=== PATIENT | female | born 1945 | race Caucasian/White ===

== ENCOUNTER 2016-04-20 14:06 | Observation (INO) | payer MEDICARE ==
--- NOTE | ~2016-04-20 | HP ---
History And Physical [address] [place]. [address] NAME: HARRIET STRONG : 43 STATUS : ADM Yajaira PAT#: [id number] AGE: 70 ADM/REG DATE : 04/20/16 MR#: [id number] REPORT SERV DATE: 04/21/16 DICTATED BY: JORGE HERRON JR DATE: 04/20/16 REPORT STATUS : Draft TRANSCRIBED BY: MODSanjay DATE: 04/20/16 DATE OF ADMISSION: 04/20/2016 CHIEF COMPLAINT: Chest wall pain with cough and dialysis nonadherence. HISTORY: A 70-year-old female started on dialysis for acute on chronic failure leading to ESRD, 01/2016. This was after emergent endovascular repair and reconstruction of the right renal artery. Left hospital dialysis dependent, has been dialyzing at [facility] location. She has had some degree of nonadherence to dialysis treatments. Her last treatment was on Saturday of this week. Tonight, she presents to the emergency room complaining of chest wall pain associated with cough. Cough has been ongoing for four to five days. She reports subjective fever, but no real sputum production. There has been no chills or diaphoresis. Her chest x-ray is essentially clear to my eye, and she has no leukocytosis. She does not have gross volume overload. Dialysis Services are not available on the outpatient setting to her again until Saturday, so she is admitted for dialytic care, and expectant observation for any febrile illness that could be associated with her cough. PAST MEDICAL HISTORY: 1. Acute on chronic kidney disease leading to ESRD. 2. Recent AAA repair endovascularly. 3. Recent right renal artery revascularization. 4. History of hypertension. 5. Anemia of chronic kidney disease. 6. Recent urinary tract infection. 7. 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 8. History of tobacco habituation. 9. Remote cholecystectomy, remote oophorectomy, and history of colonoscopy with polypectomy, remote left knee surgery, appendectomy, ectopy . SOCIAL HISTORY: Not . Smoking for multiple years. FAMILY HISTORY: Diabetes and leukemia. REVIEW OF SYSTEMS: Chest wall pain, but otherwise no current head, neck, other pulmonary, other cardiac, other GI, , musculoskeletal, or neurological complaints. She does have chronic constipation. PHYSICAL EXAMINATION: VITAL SIGNS: Blood pressure 160/90, temperature 99.4, respirations 20, O2 saturation 96%, heart rate recorded at 100. GENERAL: This is a chronically ill, thin white female, who is awake, alert, oriented, answers questions appropriately, sitting up in a bedside chair in the emergency room suite. HEENT: Cranium is normocephalic. Pupils are equal. No scleral icterus. No nasal discharge. Facial symmetry is present. NECK: No neck vein distention. No carotid bruits. No adenopathy is felt. Trachea is History And Physical [address] [place]. [address] NAME: HARRIET STRONG : 44 STATUS : ADM Yajaira PAT#: [id number] AGE: 70 ADM/REG DATE : 04/20/16 MR#: [id number] REPORT SERV DATE: 04/21/16 DICTATED BY: JORGE HERRON JR. DATE: 04/20/16 REPORT STATUS : Draft TRANSCRIBED BY: MARIFER DATE: 04/20/16 midline. Good range of motion. LUNGS: Clear to auscultation without adventitious sounds, no increased work of breathing. HEART: Tones are regular without rub, murmur, or gallop appreciated. ABDOMEN: Soft, nontender. Liver edge is not distended. GENITALIA: Not examined. CVA nontender. EXTREMITIES: With no edema. Poor musculature. Symmetrical in appearance. Distal pulses are symmetrically diminished. Cyanosis is not observed. NEUROLOGIC: Cognition, speech, and emotional status are normal. Moves all extremities. Strength appears symmetrical. Gait is not currently tested. IMAGING: Chest x-ray has been reported. LABORATORY DATA: The sodium 133, potassium 4.6, chloride 97, CO2 of 25, BUN 28, creatinine 3.37, and calcium is 9.9, total protein 7.9, albumin 3.0, liver function tests are satisfactory. Troponin is not elevated. BNP was about 500. Flu screen is negative. White count 4900, hemoglobin 11.3, platelets 3.94. ASSESSMENT: 1. Dialysis nonadherence. 2. Chest wall pain. 3. Acute on chronic leading to end-stage renal disease. 4. Recent vascular anomalies repaired. PLAN: Hemodialysis tomorrow since her dialysis centers will not be available for service again until Saturday. Observe for pyrexia, but defer antibiotics for now. Defer lisinopril. Since it is being considered whether there might have been renal functional recovery, administer hydralazine as an alternative agent. [facility] to assume her care in the morning. DF/MODL Jorge Herron Jr, M.D. / [id number] CC: Jorge Herron Jr, M.D.
[~2016-04-20 14:06] MED LIST: ASA5GR PO; ASAB PO; KAPIDEX60 MG PO; PLAVIX PO; XODOL 10-300 T1 EACH PO; [UNRECOGNIZED DRUG - REMARK]
[2016-04-20 15:31] LABS: BASOPHILS ABSOLUTE 0.05 10/3/uL (0.0-0.16); EOSINOPHILS 3.9 %; EOSINOPHILS ABSOLUTE 0.19 10/3/uL (0.0-0.53); HEMATOCRIT 35.8 % (36.0-48.0); HEMOGLOBIN 11.3 g/dL (12.0-16.0); IMMATURE GRANULOCYTES 0.4 %; IMMATURE GRANULOCYTES ABSOLUTE 0.02 10/3/uL (0.0-0.11); LYMPHOCYTES 40.8 %; LYMPHOCYTES ABSOLUTE 1.99 10/3/uL (0.67-4.30); MEAN CORPUS HGB CONC 31.6 g/dL (32.0-36.0); MEAN CORPUSCULAR HEMOGLOB 29.7 pg (26.0-34.0); MEAN PLATELET VOLUME 9.7 fL (9.2-13.0); MONOCYTES 8.6 %; MONOCYTES ABSOLUTE 0.42 10/3/uL (0.21-1.20); NEUTROPHILS 45.3 %; NEUTROPHILS ABSOLUTE 2.21 10/3/uL (2.02-8.40); PLATELET COUNT 394 10/3/uL (150-400); RBC DISTRIBUTION WIDTH 15.1 % (12.0-16.0); RED CELL COUNT 3.81 10/6/uL (4.0-5.6)
[2016-04-20 15:34] LABS: ER CBC TAT 0 Hrs 15 Mins; MANUAL DIFF NO %; PROTIME (NOT ORD) 12.7 SEC (12.0-14.5); WHITE BLOOD CELLS 4.9 10/3/uL (4.5-10.5)
[2016-04-20 15:35] LABS: PARTIAL THROMBO TIME 39.9 SEC (22.5-37.2)
[2016-04-20 15:45] LABS: CALCIUM, SERUM 9.9 MG/DL (8.5-10.4); CHLORIDE, SERUM 97 MMOL/L (96-112); CO2 (CARBON DIOXIDE) 25 MMOL/L (24-34); CREATININE 3.37 MG/DL (0.55-1.02); GFR AFRICAN AMERICAN 15 ML/MIN (>=60); GFR NON AFRICAN AMERICAN 13 ML/MIN (>=60); POTASSIUM, SERUM 4.6 MMOL/L (3.5-5.3); SGPT(ALT) 10 U/L (5-65); SODIUM, SERUM 133 MMOL/L (135-148); TOTAL BILIRUBIN 0.7 MG/DL (0-1.2); TOTAL PROTEIN 7.9 G/DL (6.0-8.5); TROPONIN I <0.02 NG/ML (<0.05)
[2016-04-20 15:46] LABS: A/G RATIO 0.6 (0.7-1.9); ALKALINE PHOSPHATASE 100 U/L (45-117); BUN (BLOOD UREA NITROGEN) 28 MG/DL (6-23); GLOBULIN 4.9 G/DL (2.5-4.1); GLUCOSE, SERUM 81 MG/DL (60-99); SGOT(AST) 19 U/L (5-40)
[2016-04-20 18:30] LABS: INFLUENZA A SCREEN NEGATIVE (NEGATIVE); INFLUENZA B SCREEN NEGATIVE (NEGATIVE)
[2016-04-20] MEDS ORDERED: NORCO1 TAB PO (18:49)
[2016-04-20] MEDS ORDERED: WELLSR100 PO (18:50)
[2016-04-20] MEDS ORDERED: PR25 PO (18:50)
[2016-04-20] MEDS ORDERED: EX-LAX PO (18:51)
[2016-04-20] MEDS ORDERED: OCEAN NAS (18:51)
[2016-04-20] MEDS ORDERED: LINZESS 145 M145 MCG PO (18:51)
[2016-04-20] MEDS ORDERED: TUMSROLL PO (18:51)
[2016-04-20] MEDS ORDERED: CEFT2 PO (18:55)
[2016-04-21 04:46] LABS: ALBUMIN 2.4 G/DL (3.5-5.0); CHLORIDE, SERUM 102 MMOL/L (96-112); CO2 (CARBON DIOXIDE) 24 MMOL/L (24-34); CREATININE 3.38 MG/DL (0.55-1.02); GFR AFRICAN AMERICAN 15 ML/MIN (>=60); GFR NON AFRICAN AMERICAN 13 ML/MIN (>=60); GLUCOSE, SERUM 83 MG/DL (60-99); POTASSIUM, SERUM 4.6 MMOL/L (3.5-5.3); SODIUM, SERUM 138 MMOL/L (135-148)
[2016-04-21 04:50] LABS: BUN (BLOOD UREA NITROGEN) 34 MG/DL (6-23); CALCIUM, SERUM 8.8 MG/DL (8.5-10.4); PHOSPHORUS, SERUM 3.6 MG/DL (2.5-4.5)
[2016-04-21 08:55] LABS: BASOPHILS 0.9 %; BASOPHILS ABSOLUTE 0.05 10/3/uL (0.0-0.16); EOSINOPHILS 8.3 %; EOSINOPHILS ABSOLUTE 0.45 10/3/uL (0.0-0.53); HEMATOCRIT 33.3 % (36.0-48.0); HEMOGLOBIN 10.8 g/dL (12.0-16.0); IMMATURE GRANULOCYTES 0.2 %; IMMATURE GRANULOCYTES ABSOLUTE 0.01 10/3/uL (0.0-0.11); LYMPHOCYTES 47.1 %; LYMPHOCYTES ABSOLUTE 2.56 10/3/uL (0.67-4.30); MEAN CORPUS HGB CONC 32.4 g/dL (32.0-36.0); MEAN CORPUSCULAR HEMOGLOB 30.9 pg (26.0-34.0); MEAN CORPUSCULAR VOLUME 95.1 fL (80-100); MEAN PLATELET VOLUME 9.3 fL (9.2-13.0); MONOCYTES 5.1 %; MONOCYTES ABSOLUTE 0.28 10/3/uL (0.21-1.20); NEUTROPHILS 38.4 %; NEUTROPHILS ABSOLUTE 2.09 10/3/uL (2.02-8.40); PLATELET COUNT 314 10/3/uL (150-400); RBC DISTRIBUTION WIDTH 15.1 % (12.0-16.0); WHITE BLOOD CELLS 5.4 10/3/uL (4.5-10.5)
[2016-04-21 08:56] LABS: MANUAL DIFF NO %
[2016-04-21 13:20] LABS: PROCALCITONIN 0.12 ng/mL (<0.5)
[2016-04-22 03:51] LABS: BASOPHILS 0.5 %; BASOPHILS ABSOLUTE 0.04 10/3/uL (0.0-0.16); EOSINOPHILS 4.4 %; EOSINOPHILS ABSOLUTE 0.32 10/3/uL (0.0-0.53); HEMATOCRIT 35.6 % (36.0-48.0); HEMOGLOBIN 11.2 g/dL (12.0-16.0); IMMATURE GRANULOCYTES 0.3 %; IMMATURE GRANULOCYTES ABSOLUTE 0.02 10/3/uL (0.0-0.11); LYMPHOCYTES 44.7 %; LYMPHOCYTES ABSOLUTE 3.26 10/3/uL (0.67-4.30); MEAN CORPUS HGB CONC 31.5 g/dL (32.0-36.0); MEAN CORPUSCULAR HEMOGLOB 30.6 pg (26.0-34.0); MEAN CORPUSCULAR VOLUME 97.3 fL (80-100); MEAN PLATELET VOLUME 9.1 fL (9.2-13.0); MONOCYTES 7.4 %; MONOCYTES ABSOLUTE 0.54 10/3/uL (0.21-1.20); NEUTROPHILS 42.7 %; NEUTROPHILS ABSOLUTE 3.12 10/3/uL (2.02-8.40); PLATELET COUNT 375 10/3/uL (150-400); RBC DISTRIBUTION WIDTH 15.2 % (12.0-16.0); RED CELL COUNT 3.66 10/6/uL (4.0-5.6); WHITE BLOOD CELLS 7.3 10/3/uL (4.5-10.5)
[2016-04-22 03:52] LABS: MANUAL DIFF NO %
[2016-04-22 04:09] LABS: ALBUMIN 2.6 G/DL (3.5-5.0); CALCIUM, SERUM 9.1 MG/DL (8.5-10.4); CHLORIDE, SERUM 103 MMOL/L (96-112); CO2 (CARBON DIOXIDE) 25 MMOL/L (24-34); CREATININE 2.98 MG/DL (0.55-1.02); GFR AFRICAN AMERICAN 18 ML/MIN (>=60); GFR NON AFRICAN AMERICAN 15 ML/MIN (>=60); GLUCOSE, SERUM 94 MG/DL (60-99); POTASSIUM, SERUM 4.5 MMOL/L (3.5-5.3); SODIUM, SERUM 140 MMOL/L (135-148)
[2016-04-22 04:10] LABS: BUN (BLOOD UREA NITROGEN) 19 MG/DL (6-23); PHOSPHORUS, SERUM 2.5 MG/DL (2.5-4.5)
[2016-04-22 13:40] LABS: CREAT SERUM (NOT ORDER) 2.98 MG/DL (0.53-1.43)
[2016-04-22 13:41] LABS: # HR UR COLLECT (NOT ORD) 12; CREAT CLEAR (NOT ORDER) 20.1 ML/MIN (75-115); URINE CREAT 0.43 G/T VOL (0.6-2.8); URINE TOTAL VOL (NOT ORD) 400 ML
[2016-04-22] MEDS ORDERED: APRES25 PO (14:53)
[2016-04-27] MEDS ORDERED: APRES25 PO (16:14)
[2016-04-27] MEDS ORDERED: CULTURELLE PROBIOTIC PO (16:15)
[2016-04-27] MEDS ORDERED: PRIN10 PO (16:19)
[2016-04-27] MEDS ORDERED: PROVHFA INH (16:28)
[2016-04-27] MEDS ORDERED: SILVADENE1 % TOP (16:31)
[2016-05-04] MEDS ORDERED: MEGACEUDL PO (12:19)
[2016-05-04] MEDS ORDERED: FLORASTOR250 MG PO (12:21)
[2016-05-09] MEDS ORDERED: PROVHFA INH (21:47)
[2016-05-09] MEDS ORDERED: TUMSROLL PO (21:48)
[2016-05-09] MEDS ORDERED: ASABAYER PO (21:48)
[2016-05-09] MEDS ORDERED: KAPIDEX60 MG PO (21:49)
[2016-05-09] MEDS ORDERED: APRES25 PO (21:49)
[2016-05-09] MEDS ORDERED: NORCO1 TAB PO (21:52)
[2016-05-09] MEDS ORDERED: LINZESS 145 M145 MCG PO (21:52)
[2016-05-09] MEDS ORDERED: MEGACEUDL PO (21:53)
[2016-05-09] MEDS ORDERED: PRIN10 PO (21:53)
[2016-05-09] MEDS ORDERED: PR25 PO (21:53)
[2016-05-09] MEDS ORDERED: OCEAN NAS (21:54)
[2016-05-09] MEDS ORDERED: CULTURELLE PROBIOTIC PO (21:54)
[2016-05-09] MEDS ORDERED: WELLSR100 PO (21:55)
[2016-05-12] MEDS ORDERED: FLORASTOR250 MG PO (11:56)
[2016-05-12] MEDS ORDERED: COREG6 PO (12:03)
[2016-05-12] MEDS ORDERED: NORV5 PO (12:03)
[2016-05-12] MEDS ORDERED: VANCOMYCIN (12:03)
[2016-09-26] MEDS ORDERED: TUMS E-X750 M2 PO (13:39)
[2016-09-26] MEDS ORDERED: ROLAIDS PO (14:09)
[2016-12-04] MEDS ORDERED: AUG500 PO (09:00)
== END 2016-04-22 16:10 | disposition home or self-care (01) ==
LOC: ER 14:06 → CDU1 19:06
PROVIDERS: Emergency Medicine; Internal Medicine Nephrology; Obstetrics & Gynecology
DX: I12.0 Hypertensive chronic kidney disease with stage 5 chronic kidney disease or end stage renal disease (principal); N18.6 End stage renal disease; D63.1 Anemia in chronic kidney disease; N39.0 Urinary tract infection, site not specified; F17.210 Nicotine dependence, cigarettes, uncomplicated; H91.90 Unspecified hearing loss, unspecified ear; I73.9 Peripheral vascular disease, unspecified; Z87.440 Personal history of urinary (tract) infections; Z90.49 Acquired absence of other specified parts of digestive tract; Z98.890 Other specified postprocedural states; Z99.2 Dependence on renal dialysis; Z79.891 Long term (current) use of opiate analgesic; Z79.899 Other long term (current) drug therapy; Z79.82 Long term (current) use of aspirin; Z90.711 Acquired absence of uterus with remaining cervical stump
CPT/HCPCS: 71010; 80053; 80069; 81050; 82575; 83735; 83880; 84145; 84484; 85025; 85610; 85730; 87040; 87070; 87205; 87804; 93005; 94640; 99285; A9270-GY; G0257; G0378

== ENCOUNTER 2016-06-22 13:33 | Inpatient (IN) | payer MEDICARE ==
--- NOTE | ~2016-06-22 | HP ---
History And Physical [id number] [place]. [address] NAME: HARRIET GIBSON : 44 STATUS : ADM Yajaira PAT#: [id number] AGE: 71 ADM/REG DATE : 06/22/16 MR#: [id number] REPORT SERV DATE: 06/23/16 DICTATED BY: DATE: REPORT STATUS : Draft TRANSCRIBED BY: MODL DATE: 06/23/16 DATE OF ADMISSION: 06/22/2016 CHIEF COMPLAINT: Abdominal pain, nausea and vomiting. HISTORY OF PRESENT ILLNESS: Ms Gibson is a 71-year-old, white female with end-stage renal disease. She has been noncompliant with dialysis in the past. She only dialyzes two days a week, but has not gone in a week's time and states she has been experiencing a week of abdominal pain, nausea, and vomiting. The abdominal pain is across the mid abdomen area. No fevers or chills. She has had no p.o. intake. Nauseated, vomiting. No diarrhea. No darker blood in stools. It is noted that she has a significant vascular history including aortic stent graft in January and celiac artery stent. She denies any fevers or chills. She does have some nasal and head congestion with headache. PAST MEDICAL HISTORY: End-stage renal disease, abdominal aortic stent graft in January, right renal artery stenosis with stents daily, celiac artery stenosis with stent, left fifth toe gangrene with amputation, COPD, hypertension, asthma, anemia, and noncompliance. FAMILY MEDICAL HISTORY: No end-stage renal disease. SOCIAL HISTORY: She lives with her . History of tobacco, no use, none at present. No alcohol use. MEDICATIONS AT HOME: Aspirin, Wellbutrin, Coreg, Dexilant, Apresoline, Prinivil, Phenergan, and Ultram. REVIEW OF SYSTEMS: Twelve-point review of systems obtained and negative with the exception of that in the HPI. PHYSICAL EXAMINATION: VITAL SIGNS: Temp 97.6, blood pressure 207/91, pulse of 92, respiratory rate 18, O2 saturation is 97%. GENERAL: This is a chronically ill-appearing, thin white female. She is awake, alert, and oriented x3, in no acute distress. Answers questions appropriately. HEENT: Normocephalic and atraumatic. Conjunctivae clear. Sclerae anicteric. Pupils are equal and round. Oral mucosa is moist. She does have some tenderness over her frontal sinus. NECK: Supple. No bruits. No lymphadenopathy. RESPIRATIONS: Even and unlabored. Breath sounds clear to auscultation. HEART: Rate is regular. No murmur, rub, or gallop. ABDOMEN: Soft. Bowel sounds are active. No masses or hepatosplenomegaly. No CVA tenderness. BACK: Within normal limits. EXTREMITIES: No edema, cyanosis, or clubbing. SKIN: Warm, dry, and intact. No unusual rash or skin lesions. NEURO: No focal deficits. Mood and affect, pleasant and appropriate. History And Physical [address] [address] NAME: HARRIET GIBSON : 44 STATUS : ADM Yajaira PAT#: [id number] AGE: 71 ADM/REG DATE : 06/22/16 MR#: [id number] REPORT SERV DATE: 06/23/16 DICTATED BY: DATE: REPORT STATUS : Draft TRANSCRIBED BY: MODL DATE: 06/23/16 PERTINENT LABORATORIES AND X-RAYS: LFTs are unremarkable. Lipase normal. Sodium 136, potassium 5.3, chloride 105, CO2 16, BUN 41, creatinine 4.83, calcium 9.5, albumin 3.6. CT of the abdomen and pelvis with the only abnormality is today with the urinary bladder and there was some air-fluid level seen in the urinary bladder. Question of recent instrumentation, which has not been done shows a gas-filled lumen, question of fistula. IMPRESSION: 1. Abdominal pain. 2. Nausea and vomiting. 3. End-stage renal disease. 4. Noncompliance with dialysis. 5. Abnormal CT of the abdomen at the level of the bladder. 6. Peripheral vascular disease. 7. Status post abdominal aortic stent graft. 8. Chronic pain. 9. Hypertension. PLAN: Dialysis today as I suspect some of her symptoms are due to uremia. She does have chronic problems with abdominal pain. Continue her chronic medications. The CT of the abdomen, her pain is not actually down in the pelvic region, not the bladder. She does make urine and we will consider further workup if symptoms do not tash. Nausea medicines, pain medicines. We will give her some intranasal steroids for her head congestion. Further orders and recommendations pending clinical course. SHANT/MARIFER POLINA Krishnamurthy / [id number] CC: Jessi Nguyen M.D.
--- NOTE | ~2016-06-22 | DS ---
Discharge Summary [facility] [address] [place]. [address] NAME: HARRIET STRONG : 43 STATUS : DIS IN PAT#: [id number] AGE: 71 ADM/REG DATE : 06/23/16 MR#: [id number] REPORT SERV DATE: 07/02/16 DICTATED BY: WEI YOUNG DATE: 07/02/16 REPORT STATUS : Draft TRANSCRIBED BY: MARIFER DATE: 07/02/16 Data Collection from hospitalization DISCHARGE DIAGNOSES: 1. End-stage renal disease. 2. Nausea and vomiting - resolved. 3. Abdominal pain - resolved. 4. Noncompliance with hemodialysis. 5. Peripheral vascular disease. 6. Gram-negative kristi urinary tract infection. 7. Hypertension. 8. Anemia. 9. Asthma. 10.Chronic obstructive pulmonary disease. 11.History of celiac artery stenosis with stent. 12.Coronary artery disease. CONSULTATIONS: Tae Hopkins M.D. PROCEDURES PERFORMED: CT scan of the abdomen and pelvis without contrast on 06/22/2016. MEDICATIONS: Pavel Aspirin 325 mg daily, Wellbutrin SR 100 mg daily, Coreg 6.25 mg twice a day, Dexilant 60 mg daily, Flonase nasal spray two sprays nasally daily, Apresoline 25 mg three times a day, Levaquin 750 mg every 48 hours, Prinivil 10 mg daily, Phenergan 25 mg every eight hours as needed, and Ultram 50 mg four times a day as needed. CONDITION AT DISCHARGE: Stable. DISPOSITION: The patient was discharged home to be followed by home health care on a regular diet with activities as instructed. She would follow up with me on 07/17/[address] Jaquan Rodriguez on 07/10/2016. HOSPITAL COURSE: This is a 71-year-old female who has end-stage renal disease. She had been noncompliant with dialysis in the past. She only dialyzes two days a week, but had not gone in a week's time and said that she had been experiencing a week of abdominal pain, nausea, and vomiting. The abdominal pain is across the mid abdomen area. She has had no fevers or chills. She has had no oral intake, nausea, or vomiting. She had no diarrhea. She had no dark or blood in the stool. She does have a significant vascular history including aortic stent graft in January and celiac artery stent. She denied fevers or chills. She does have some nasal and head congestion with headache. She was admitted to the hospital at this time for further evaluation and treatment. Upon admission, creatinine level was 4.83. A CT scan of the abdomen and pelvis with the only abnormality with the urinary bladder and there was some air-fluid level seen in the urinary bladder. There was a question of recent instrumentation, which had not been done and it showed gas-filled ileum and question of fistula. Dialysis would be performed that day as it was suspected that some of her symptoms were due to uremia. She does have a chronic problem with abdominal pain. Chronic medications would be continued. She does make Discharge Summary [id number] [facility] [place]. [address] NAME: HARRIET STRONG : 43 STATUS : DIS IN PAT#: [id number] AGE: 71 ADM/REG DATE : 06/23/16 MR#: [id number] REPORT SERV DATE: 07/02/16 DICTATED BY: WEI YOUNG DATE: 07/02/16 REPORT STATUS : Draft TRANSCRIBED BY: MARIFER DATE: 07/02/16 urine and we would consider further workup if the symptoms did not tash. She would receive nausea medication and pain medication. We were going to give her some intranasal steroids for her head congestion. The following day, she did have a creatinine level of 4.90. Her abdominal pain, nausea, and vomiting had resolved. She was alert and cooperative. She had no edema. Her lungs were clear. On 06/25/2016, she did complain of some constipation. Levaquin was continued. She was seen by Dr. Tae Hopkins regarding voiding dysfunction, urinary tract infection, and air in the bladder. Urine culture was positive for E. coli. On admission, her CT scan had shown air fluid level in the bladder and apparent retention. A Santoro catheter had been placed. She denied any particular voiding dysfunction except for incontinence that was managed with a diaper. She thinks that she had seen a urologist, but there was no one in the computer that had seen her and she remembered no name. She has had some upper abdominal pain, but not pelvic. It was felt from his standpoint that she was stable and that it was okay to discharge her with or without a catheter. He wanted to follow her up in the office in several weeks for reassessment. He would consider repeat imaging and obtain a postvoid residual at some point. On 06/26/2016, she had good pain control. She continued to do well. She had a normal respiratory effort. Discharge instructions were given. Due to her improved and stable condition, she was discharged home with the above-stated instructions. Information collected by: Chiquita Narayanan I submit the above information as my discharge summary. TG/MODL Wei Young M.D. / [id number] CC: Jessi Nguyen M.D. J. Patrick Dilworth, M.D.
--- NOTE | ~2016-06-22 | CN ---
Consultation Report [id number] [facility] [place]. [address] NAME: HARRIET GIBSON : 44 STATUS : ADM IN PAT#: [id number] AGE: 71 ADM/REG DATE : 06/23/16 MR#: [id number] REPORT SERV DATE: 06/26/16 DICTATED BY: Tae SANCHEZ DATE: 06/26/16 REPORT STATUS : Draft TRANSCRIBED BY: MODL DATE: 06/26/16 CONSULTATION NOTE DATE OF CONSULTATION: 06/26/2016 CHIEF COMPLAINT: Voiding dysfunction, UTI, air in the bladder. HISTORY OF PRESENT ILLNESS: Ms. Gibson is a 71-year-old white female, admitted on 06/22/2016 with abdominal pain, nausea, and vomiting. She has a chronic incontinence and is on hemodialysis, although she is intermittently noncompliant. On admission, CT showed an air- fluid level in the bladder and apparent retention and a Santoro catheter was placed for an unknown volume. Urine culture was positive for E coli. She denies any particular voiding dysfunction except for incontinence, managed with a diaper. She thinks she has seen a urologist, but there is no one in the computer that has seen her, and she remembers no name. She has had some problems with abdominal pain on arrival, it was upper abdominal and not pelvic. PAST MEDICAL HISTORY: 1. CAD with PVD status post abdominal aortic graft in 01/2016. 2. End-stage renal disease. 3. Right renal artery stenosis with stent. 4. Celiac artery stenosis with stents. 5. History of gangrene with amputation. 6. COPD. 7. Hypertension. 8. Asthma. 9. Anemia. 10.Noncompliance. PAST SURGICAL HISTORY: As above. She denies any surgical history. MEDICATIONS: Daily aspirin, Wellbutrin, Coreg 6.25 daily, Dexilant 60 mg daily, hydralazine 25 daily, lisinopril 10 daily, Phenergan 25 mg p.r.n., tramadol 50 mg p.r.n. ALLERGIES: CLOPIDOGREL CAUSES ITCHING. FAMILY HISTORY: Negative for urologic disease. SOCIAL HISTORY: The patient lives at home. She is a previous smoker. Denies current smoking or alcohol use. REVIEW OF SYSTEMS: A full 12-point review of systems is obtained and is negative except as noted above. Consultation Report [facility] [address] [place]. [address] NAME: HARRIET GIBSON : 43 STATUS : ADM IN PAT#: [id number] AGE: 71 ADM/REG DATE : 06/23/16 MR#: [id number] REPORT SERV DATE: 06/26/16 DICTATED BY: Tae SANCHEZ DATE: 06/26/16 REPORT STATUS : Draft TRANSCRIBED BY: MODL DATE: 06/26/16 PHYSICAL EXAMINATION: GENERAL: Alert 71-year-old white female. VITAL SIGNS: Afebrile with normal vital signs. HEENT: Normocephalic, atraumatic. CHEST: No respiratory distress. HEART: Regular rate and rhythm. ABDOMEN: Flat, nontender, nondistended. No CVA tenderness. : Indwelling Santoro catheter draining clear urine. EXTREMITIES: No peripheral edema. The patient is ambulatory. IMAGING: CT scan as noted above, apparent air in the bladder prior to catheter placement. PERTINENT LABORATORY: Creatinine 4.90 on 06/23/2016, 3.55 today. IMPRESSION: 1. Multiple medical problems with severe peripheral vascular disease. 2. End-stage renal disease. 3. Chronic urinary incontinence. 4. Recurrent urinary tract infection. 5. Possible urinary retention. 6. Air in the bladder, possibly due to urinary tract infection or some other cause. PLAN: I think from my standpoint she is stable. It is okay to discharge her with or without her catheter. I like her to follow up in my office to reassess in several weeks. We will consider repeat imaging and obtain a postvoid residual at some point. JON/MARIFER Tae Sanchez M.D. / [id number] CC: Jessi Nguyen M.D. [facility]
[~2016-06-22 13:33] MED LIST changes: +APRES25 PO; +ASABAYER PO; +CEFT2 PO; +COREG6 PO; +CULTURELLE PROBIOTIC PO; +EX-LAX PO; +FLORASTOR250 MG PO; +LINZESS 145 M145 MCG PO; +MEGACEUDL PO; +NORCO1 TAB PO; +NORV5 PO; +OCEAN NAS; +PR25 PO; +PRIN10 PO; +PROVHFA INH; +SILVADENE1 % TOP; +TUMSROLL PO; +VANCOMYCIN; +WELLSR100 PO
[2016-06-22 14:01] LABS: BASOPHILS 1.1 %; BASOPHILS ABSOLUTE 0.09 10/3/uL (0.0-0.16); EOSINOPHILS 6.6 %; EOSINOPHILS ABSOLUTE 0.52 10/3/uL (0.0-0.53); ER CBC TAT 0 Hrs 08 Mins; HEMOGLOBIN 11.2 g/dL (12.0-16.0); IMMATURE GRANULOCYTES 0.3 %; IMMATURE GRANULOCYTES ABSOLUTE 0.02 10/3/uL (0.0-0.11); LYMPHOCYTES 20.7 %; LYMPHOCYTES ABSOLUTE 1.63 10/3/uL (0.67-4.30); MEAN CORPUS HGB CONC 32.4 g/dL (32.0-36.0); MEAN CORPUSCULAR HEMOGLOB 30.1 pg (26.0-34.0); MEAN PLATELET VOLUME 9.3 fL (9.2-13.0); MONOCYTES 8.2 %; MONOCYTES ABSOLUTE 0.65 10/3/uL (0.21-1.20); NEUTROPHILS 63.1 %; NEUTROPHILS ABSOLUTE 4.98 10/3/uL (2.02-8.40); PLATELET COUNT 395 10/3/uL (150-400); RBC DISTRIBUTION WIDTH 17.5 % (12.0-16.0); RED CELL COUNT 3.72 10/6/uL (4.0-5.6); WHITE BLOOD CELLS 7.9 10/3/uL (4.5-10.5)
[2016-06-22 14:02] LABS: HEMATOCRIT 34.6 % (36.0-48.0); MANUAL DIFF NO %
[2016-06-22 14:13] LABS: A/G RATIO 0.8 (0.7-1.9); ALBUMIN 3.6 G/DL (3.5-5.0); ALKALINE PHOSPHATASE 82 U/L (45-117); BUN (BLOOD UREA NITROGEN) 41 MG/DL (6-23); CALCIUM, SERUM 9.5 MG/DL (8.5-10.4); CHLORIDE, SERUM 105 MMOL/L (96-112); CO2 (CARBON DIOXIDE) 16 MMOL/L (24-34); CREATININE 4.83 MG/DL (0.55-1.02); GFR AFRICAN AMERICAN 10 ML/MIN (>=60); GFR NON AFRICAN AMERICAN 8 ML/MIN (>=60); GLOBULIN 4.3 G/DL (2.5-4.1); GLUCOSE, SERUM 99 MG/DL (60-99); POTASSIUM, SERUM 5.3 MMOL/L (3.5-5.3); SGOT(AST) 15 U/L (5-40); SGPT(ALT) 17 U/L (5-65); SODIUM, SERUM 136 MMOL/L (135-148); TOTAL BILIRUBIN 0.4 MG/DL (0-1.2); TOTAL PROTEIN 7.9 G/DL (6.0-8.5)
[2016-06-22] MEDS ORDERED: PRIN10 PO (20:28)
[2016-06-22] MEDS ORDERED: ULTRAM50 PO (20:28)
[2016-06-22] MEDS ORDERED: APRES50 PO (20:30)
[2016-06-22] MEDS ORDERED: ASABAYER PO (20:34)
[2016-06-22] MEDS ORDERED: WELLSR100 PO (20:34)
[2016-06-22] MEDS ORDERED: KAPIDEX60 MG PO (20:35)
[2016-06-22] MEDS ORDERED: PR25 PO (20:35)
[2016-06-22] MEDS ORDERED: COREG12 PO (20:35)
[2016-06-23 07:44] LABS: ASCORBIC ACID (UR NOT ORDER) NEG (NEG); BILIRUBIN, URINE NEGATIVE (NEG); KETONE, URINE NEGATIVE (NEG); LEUKOCYTE ESTERASE(NOT OR MOD (NEG); WBC (NOT ORDERED) (RFLEX) 125 (0-5)
[2016-06-23 14:21] LABS: BASOPHILS 0.7 %; BASOPHILS ABSOLUTE 0.05 10/3/uL (0.0-0.16); EOSINOPHILS 6.2 %; EOSINOPHILS ABSOLUTE 0.44 10/3/uL (0.0-0.53); HEMOGLOBIN 9.4 g/dL (12.0-16.0); IMMATURE GRANULOCYTES 0.1 %; IMMATURE GRANULOCYTES ABSOLUTE 0.01 10/3/uL (0.0-0.11); LYMPHOCYTES 23.3 %; LYMPHOCYTES ABSOLUTE 1.65 10/3/uL (0.67-4.30); MEAN CORPUS HGB CONC 32.5 g/dL (32.0-36.0); MEAN CORPUSCULAR HEMOGLOB 29.4 pg (26.0-34.0); MEAN CORPUSCULAR VOLUME 90.3 fL (80-100); MEAN PLATELET VOLUME 9.5 fL (9.2-13.0); MONOCYTES ABSOLUTE 0.71 10/3/uL (0.21-1.20); NEUTROPHILS 59.7 %; NEUTROPHILS ABSOLUTE 4.23 10/3/uL (2.02-8.40); PLATELET COUNT 376 10/3/uL (150-400); RBC DISTRIBUTION WIDTH 17.2 % (12.0-16.0); WHITE BLOOD CELLS 7.1 10/3/uL (4.5-10.5)
[2016-06-23 14:23] LABS: HEMATOCRIT 28.9 % (36.0-48.0); MANUAL DIFF NO %
[2016-06-23 14:34] LABS: ALBUMIN 3.3 G/DL (3.5-5.0); CALCIUM, SERUM 9.4 MG/DL (8.5-10.4); CHLORIDE, SERUM 106 MMOL/L (96-112); CO2 (CARBON DIOXIDE) 17 MMOL/L (24-34); GFR AFRICAN AMERICAN 10 ML/MIN (>=60); GFR NON AFRICAN AMERICAN 8 ML/MIN (>=60); GLUCOSE, SERUM 95 MG/DL (60-99); POTASSIUM, SERUM 4.9 MMOL/L (3.5-5.3); SODIUM, SERUM 136 MMOL/L (135-148)
[2016-06-23 14:35] LABS: BUN (BLOOD UREA NITROGEN) 51 MG/DL (6-23); PHOSPHORUS, SERUM 4.7 MG/DL (2.5-4.5)
[2016-06-25 12:50] LABS: BASOPHILS 0.7 %; BASOPHILS ABSOLUTE 0.05 10/3/uL (0.0-0.16); EOSINOPHILS 9.3 %; EOSINOPHILS ABSOLUTE 0.68 10/3/uL (0.0-0.53); HEMATOCRIT 27.8 % (36.0-48.0); HEMOGLOBIN 9.2 g/dL (12.0-16.0); IMMATURE GRANULOCYTES 0.3 %; IMMATURE GRANULOCYTES ABSOLUTE 0.02 10/3/uL (0.0-0.11); LYMPHOCYTES 31.6 %; LYMPHOCYTES ABSOLUTE 2.31 10/3/uL (0.67-4.30); MANUAL DIFF NO %; MEAN CORPUS HGB CONC 33.1 g/dL (32.0-36.0); MEAN CORPUSCULAR HEMOGLOB 29.9 pg (26.0-34.0); MEAN CORPUSCULAR VOLUME 90.3 fL (80-100); MEAN PLATELET VOLUME 9.3 fL (9.2-13.0); MONOCYTES 9.4 %; MONOCYTES ABSOLUTE 0.69 10/3/uL (0.21-1.20); NEUTROPHILS 48.7 %; NEUTROPHILS ABSOLUTE 3.57 10/3/uL (2.02-8.40); PLATELET COUNT 342 10/3/uL (150-400); RBC DISTRIBUTION WIDTH 16.9 % (12.0-16.0); RED CELL COUNT 3.08 10/6/uL (4.0-5.6); WHITE BLOOD CELLS 7.3 10/3/uL (4.5-10.5)
[2016-06-25 13:01] LABS: ALBUMIN 3.1 G/DL (3.5-5.0); BUN (BLOOD UREA NITROGEN) 49 MG/DL (6-23); CALCIUM, SERUM 8.7 MG/DL (8.5-10.4); CHLORIDE, SERUM 102 MMOL/L (96-112); GFR AFRICAN AMERICAN 8 ML/MIN (>=60); GFR NON AFRICAN AMERICAN 7 ML/MIN (>=60); GLUCOSE, SERUM 107 MG/DL (60-99); PHOSPHORUS, SERUM 5.1 MG/DL (2.5-4.5); POTASSIUM, SERUM 4.9 MMOL/L (3.5-5.3); SODIUM, SERUM 136 MMOL/L (135-148)
[2016-06-25 13:04] LABS: CO2 (CARBON DIOXIDE) 24 MMOL/L (24-34); CREATININE 5.44 MG/DL (0.55-1.02)
[2016-06-26 03:05] LABS: ASCORBIC ACID (UR NOT ORDER) NEG (NEG); BILIRUBIN, URINE NEGATIVE (NEG); KETONE, URINE TRACE MG/DL (NEG); LEUKOCYTE ESTERASE(NOT OR LARGE (NEG); WBC (NOT ORDERED) (RFLEX) 160 (0-5)
[2016-06-26 04:39] LABS: BASOPHILS 0.6 %; BASOPHILS ABSOLUTE 0.04 10/3/uL (0.0-0.16); EOSINOPHILS 8.5 %; EOSINOPHILS ABSOLUTE 0.61 10/3/uL (0.0-0.53); HEMATOCRIT 27.6 % (36.0-48.0); HEMOGLOBIN 9.1 g/dL (12.0-16.0); IMMATURE GRANULOCYTES 0.4 %; IMMATURE GRANULOCYTES ABSOLUTE 0.03 10/3/uL (0.0-0.11); LYMPHOCYTES 27.5 %; LYMPHOCYTES ABSOLUTE 1.96 10/3/uL (0.67-4.30); MEAN CORPUSCULAR HEMOGLOB 30.4 pg (26.0-34.0); MEAN CORPUSCULAR VOLUME 92.3 fL (80-100); MEAN PLATELET VOLUME 9.4 fL (9.2-13.0); MONOCYTES 10.6 %; MONOCYTES ABSOLUTE 0.76 10/3/uL (0.21-1.20); NEUTROPHILS 52.4 %; NEUTROPHILS ABSOLUTE 3.74 10/3/uL (2.02-8.40); PLATELET COUNT 349 10/3/uL (150-400); RED CELL COUNT 2.99 10/6/uL (4.0-5.6); WHITE BLOOD CELLS 7.1 10/3/uL (4.5-10.5)
[2016-06-26 04:40] LABS: MANUAL DIFF NO %
[2016-06-26 04:51] LABS: CALCIUM, SERUM 8.9 MG/DL (8.5-10.4); CHLORIDE, SERUM 101 MMOL/L (96-112); CO2 (CARBON DIOXIDE) 28 MMOL/L (24-34); GLUCOSE, SERUM 94 MG/DL (60-99); POTASSIUM, SERUM 4.3 MMOL/L (3.5-5.3); SODIUM, SERUM 138 MMOL/L (135-148)
[2016-06-26 04:53] LABS: BUN (BLOOD UREA NITROGEN) 25 MG/DL (6-23); CREATININE 3.55 MG/DL (0.55-1.02); GFR AFRICAN AMERICAN 14 ML/MIN (>=60); GFR NON AFRICAN AMERICAN 12 ML/MIN (>=60); PHOSPHORUS, SERUM 3.9 MG/DL (2.5-4.5)
[2016-06-26] MEDS ORDERED: LEVAQUIN750 MG PO (15:16)
[2016-06-26] MEDS ORDERED: FLONASE NAS (15:17)
[2016-09-26] MEDS ORDERED: TUMS E-X750 M2 PO (13:39)
[2016-09-26] MEDS ORDERED: ROLAIDS PO (14:09)
[2016-12-04] MEDS ORDERED: AUG500 PO (09:00)
== END 2016-06-26 16:46 | disposition home health service (06) | DRG 682 ==
LOC: ER 13:33 → 4SO 21:15
PROVIDERS: Hospitalist; Internal Medicine Nephrology; Nurse Practitioner
PROC: 5A1D60Z (ICD-10-PCS; principal; 2016-06-23)
DX: I12.0 Hypertensive chronic kidney disease with stage 5 chronic kidney disease or end stage renal disease (principal); N18.6 End stage renal disease; N39.0 Urinary tract infection, site not specified; Z99.2 Dependence on renal dialysis; Z91.15 Patient's noncompliance with renal dialysis; Z95.820 Peripheral vascular angioplasty status with implants and grafts; G89.29 Other chronic pain; B96.20 Unspecified Escherichia coli [E. coli] as the cause of diseases classified elsewhere; K59.00 Constipation, unspecified; J44.9 Chronic obstructive pulmonary disease, unspecified; D63.1 Anemia in chronic kidney disease; J45.909 Unspecified asthma, uncomplicated; Z79.82 Long term (current) use of aspirin; R33.9 Retention of urine, unspecified; R32 Unspecified urinary incontinence; I25.10 Atherosclerotic heart disease of native coronary artery without angina pectoris; Z89.422 Acquired absence of other left toe(s); Z87.891 Personal history of nicotine dependence
CPT/HCPCS: 74176; 80053; 80069; 81001; 83690; 83735; 85025; 87077; 87086; 87186; 93005; 97161-GP; 99285; A9270-GY; G0257; G8978-CJ-GP; G8979-CI-GP; J0360; J2405